=== PATIENT | female | born 1980 | race Caucasian/White ===

== ENCOUNTER 2019-10-20 10:18 | Day surgery (SDC) | payer BC ==
[~2019-10-20] VITALS: Ht 157.5 cm; Wt 52.9 kg
[~2019-10-20 10:18] MED LIST: CETI10TA24 PO; FLUT9.9S NS; LACT1CAP35 PO; OMEG1CAP23 PO; TURM1POW PO
[2019-10-20] MEDS ORDERED: LACTATED RINGERS 1,000 ML IV SCH (11:01)
[2019-10-20 11:02] VITALS: BP 134/75
[2019-10-20] MEDS ORDERED: FENTANYL PF 100 MCG/2ML ONE (11:11)
[2019-10-20] MEDS ORDERED: MIDAZOLAM 1 MG/ML, 2ML ONE (11:11)
[2019-10-20] MEDS ORDERED: PROPOFOL 50 ML ONE ×2 (11:11→14:16)
[2019-10-20 11:22] LABS: HCG UR SG 1.006 (1.003-1.030)
[2019-10-20] MEDS ORDERED: GABAPENTIN 300 MG CAPSULE PO ONE (11:30)
[2019-10-20] MEDS ORDERED: ACETAMINOPHEN 500 MG TABLET PO ONE (11:30)
[2019-10-20] MEDS ORDERED: BUPIVACAINE/PF 0.5% ONE (12:54)
[2019-10-20] MEDS ORDERED: KETOROLAC 30 MG/1 ML ONE (13:50)
[2019-10-20] MEDS ORDERED: DEXAMETHASONE 4 MG/ML, 1ML ONE (14:27)
[2019-10-20] MEDS ORDERED: CEFAZOLIN 1,000 MG ONE (14:27)
[2019-10-20] MEDS ORDERED: PROPOFOL 10 MG/ML, 20ML ONE (14:27)
[2019-10-20] MEDS ORDERED: ONDANSETRON 2MG/ML, 2ML ONE (14:27)
[2019-10-20] MEDS ORDERED: HYDROmorphone 2 MG/ML, 1ML IVPush PRN (14:30)
[2019-10-20] MEDS ORDERED: hydrALAzine 20 MG/ML, 1ML IV PRN (14:30)
[2019-10-20] MEDS ORDERED: PROMETHAZINE 25 MG/ML, 1ML IV PRN (14:30)
[2019-10-20] MEDS ORDERED: FENTANYL PF 100 MCG/2ML IV PRN (14:30)
[2019-10-20] MEDS ORDERED: ALBUTEROL/IPRATROPIUM 2.5MG/0.5MG, 3 ML NPPB PRN (14:30)
[2019-10-20] MEDS ORDERED: OXYcodone 5 MG/5 ML ORAL.SOL UDC PO PRN (14:30)
[2019-10-20] MEDS ORDERED: METOPROLOL 1 MG/ML, 5ML IV PRN (14:30)
[2019-10-20] MEDS ORDERED: MIDAZOLAM 1 MG/ML, 2ML IV PRN (14:30)
[2019-10-20] MEDS ORDERED: MEPERIDINE/PF 25MG/ML,1ML ONE (14:49)
[2019-10-20] MEDS: MEPERIDINE/PF 25MG/ML,1ML IVPush PRN (14:50)
== END 2019-10-20 16:45 | disposition home or self-care (01) ==
LOC: OUT 10:18
PROVIDERS: ATTEND Orthopaedic Surgery
DX: M24.672 Ankylosis, left ankle (principal); M93.272 Osteochondritis dissecans, left ankle and joints of left foot; S86.312A Strain of muscle(s) and tendon(s) of peroneal muscle group at lower leg level, left leg, initial encounter; M65.872 Other synovitis and tenosynovitis, left ankle and foot; G43.909 Migraine, unspecified, not intractable, without status migrainosus; Z79.899 Other long term (current) drug therapy; Z88.0 Allergy status to penicillin; Z88.1 Allergy status to other antibiotic agents; Z79.890 Hormone replacement therapy; X58.XXXA Exposure to other specified factors, initial encounter; Y93.89 Activity, other specified; Y92.89 Other specified places as the place of occurrence of the external cause; Y99.8 Other external cause status
CPT/HCPCS: 27698; 28200; 29898; 64445; 64447; 81025; C1713; J0690; J1100; J1885; J2175; J2250; J2405; J2704; J3010; J7120